=== PATIENT | male | born 1935 | race Caucasian/White ===

== ENCOUNTER 2018-08-29 23:39 | Emergency (ER) | payer MEDICARE, OTHER ==
--- NOTE | 2018-08-30 00:20 | EDM.PDOC ---
ED HPI GENERAL MEDICAL PROBLEM - General Chief Complaint: ENT Problem Stated Complaint: BLOODY NOSE CANT GET IT TO STOP Time Seen by Provider: 08/30/18 00:20 Source of Information: Reports: Patient History Limitations: Reports: No Limitations - History of Present Illness INITIAL COMMENTS - FREE TEXT/NARRATIVE: 83-year-old male presents to the ED with acute left-sided nosebleed. Bleeding started spontaneously about 3 hours ago. After half hour he was able to get it to stop but 20 minutes later started to bleed again. Blood almost for an hour before keep came to the ED. Nose clamp in place for about one hour and is now stopped bleeding. He states he coughed up a little bit of blood but it was for the most part it was pouring out the left side of his nose. Note the patient is on aspirin and Eliquis due to atrial fibrillation. No recent trauma to his nose. Onset: Today Onset Date: 08/29/18 Onset Time: 21:45 Duration: Hour(s): Location: Reports: Face Quality: Reports: Other Severity: Moderate (Aggressive bleeding left naris.) Improves with: Reports: Other (Firm pressure has helped control the bleeding and no scleral seems to cut it to stop.) Worsens with: Reports: None Context: Reports: Other. Denies: Activity, Exercise, Lifting, Sick Contact, Trauma Associated Symptoms: Reports: Malaise. Denies: Confusion (Mark is occurrence of nosebleed.), Chest Pain, Cough, cough w sputum, Diaphoresis, Fever /Chills, Headaches, Loss of Appetite, Nausea/Vomiting, Rash, Seizure, Shortness of Breath Treatments WORKPLACE REHABILITATION OFFICER: Reports: Other (see below) (None.) - Related Data Allergies Allergy/AdvReac Type Severity Reaction Status Date / Time No Known Allergies Allergy Verified 08/31/15 16:47 Home Meds: Home Meds Simvastatin [Zocor] 20 mg PO DAILY 08/18/15 [History] Tamsulosin [Flomax] 0.4 mg PO DAILY #14 cap.er 08/18/15 [Rx] Aspirin 81 mg PO DAILY 08/31/15 [History] Fish Oil/[place]-3 Fatty Acids [Fish Oil] 1,200 mg PO DAILY 08/31/15 [History] Bacitracin/Polymyxin B Sulfate [Polysporin Ointment] 14.2 gm TP BEDTIME #1 tube 08/30/18 [Rx] Past Medical History Cardiovascular History: Reports: Afib (He is on aspirin and Eliquis for this. States she's been in A. fib for 7 or 8 months. He is wondering about discussion with autism tutor in regards to possibility of attempting cardioversion. I've asked him to discuss this with Dr. Smith his primary care physician) Genitourinary History: Reports: BPH, Prostate Disorder (Is on tamsulosin as well.) Other Genitourinary History: Bladder cancer diagnosed about 6 months ago. He presented with obstruction of the urethra and active bleeding per urethra. Required fulguration and cauterization and then BCG treatments. Is followed by urology every 6 months. Musculoskeletal History: Reports: Back Pain, Chronic, Osteoarthritis (Knees hips and neck at times) Social & Family History - Living Situation & Occupation Living situation: Reports: (Second recently within the last month. She secondary to primary renal cancer with diffuse metastatic bone disease. I.e. she had stage IV disease at the time of diagnosis.), Alone Occupation: Retired ED ROS ENT - Review of Systems Review Of Systems: See Below Constitutional: Reports: Weakness. Denies: Fever, Chills, Malaise, Fatigue, Weight Loss HEENT: Reports: Glasses, Nosebleed (Profuse left-sided nosebleed tonight.) Cardiovascular: Reports: Blood Pressure Problem, Dyspnea on Exertion Endocrine: Reports: Fatigue (Elevated a bit tonight but not usually.) GI/Abdominal: Reports: No Symptoms : Reports: Frequency, Other Musculoskeletal: Reports: Back Pain (Nocturia usually 2.), Joint Pain Skin: Reports: Bruising (Knees and hips at times shoulders occasionally as well. ) Neurological: Reports: No Symptoms ( Bruises easily as he is on aliquots and aspirin.) Psychiatric: Reports: No Symptoms Hematologic/Lymphatic: Reports: No Symptoms Immunologic: Reports: No Symptoms ED EXAM, ENT - Physical Exam Exam: See Below Exam Limited By: No Limitations General Appearance: Alert, WD/WN, No Apparent Distress, Other (Nose clamp in place.) Nose: Other (Examination of his nose reveals inflammation of the right nasal mucosa particular the floor of the nose presumably due to dryness. The left side showed an area that has been bleeding from the anterior mid septum. Leading appears to stop with the aid of the clamp.) Mouth/Throat: Normal Inspection, Normal Gums, Normal Lips, Other Head: Atraumatic, Normocephalic (No blood or clots in the posterior oropharynx.) Neck: Normal Inspection, Limited Range of Motion, Tender Lateral. No: Lymphadenopathy (L), Lymphadenopathy (R) Respiratory/Chest: No Respiratory Distress, Lungs Clear, Normal Breath Sounds, Chest Non-Tender Cardiovascular: No JVD, No Murmur, Irregularly Irregular (Atrial fibrillation with rate controlled in the 70s.). No: Regular Rate, Rhythm, No Edema, No Gallop, Bradycardia, Tachycardia GI/Abdominal: Normal Bowel Sounds (Atrial fibrillation at 80/m), Soft, Non- Tender, No Organomegaly, No Abnormal Bruit, No Mass, Pelvis Stable Course - Vital Signs Last Recorded V/S: Last Vital Signs Temp 36.5 C 08/29/18 23:46 Pulse 78 08/29/18 23:46 Resp 18 08/29/18 23:46 BP Pulse Ox 94 L 08/29/18 23:46 - Radiology Interpretation Free Text/Narrative:: 83-year-old male is a CD with a profuse left-sided nosebleed for 2 and half hours. He did get it to stop for about a half an hour. He's had a nasal clamp in place for the last hour. Bleeding appears to stop. Inspection of the left nares reveals source of bleeding to be from the anterior mid nasal septum. Cauterized this area with silver nitrate but unfortunately the clot removed and he started bleeding again. I therefore reclamped his nose with the nose clamp and will review in 10-15 minutes. - Re-Assessments/Exams Free Text/Narrative Re-Assessment/Exam: 08/30/18 01:24 bleeding has stopped on reevaluation of the left naris. He'll be have bacitracin ointment placed in the nares. Plan will be to have him put Polysporin ointment by way of Q-tip into each side of his nose at bedtime for the next week. He's going to discuss with Dr. Carrillo whether or not cardiology consultation is worthwhile. Sitting more than not cardioversion is an option for him for it because of his chronic atrial fibrillation. Coarse she'll return to medical care if he has further bleeding. I did send him home with his nose clamp. Departure - Departure Time of Disposition: 01:25 Disposition: Home, Self-Care 01 Condition: Fair Clinical Impression: Anterior epistaxis - Discharge Information *PRESCRIPTION DRUG MONITORING PROGRAM REVIEWED*: Not Applicable *COPY OF PRESCRIPTION DRUG MONITORING REPORT IN PATIENT VERN: Not Applicable Prescriptions: Bacitracin/Polymyxin B Sulfate [Polysporin Ointment] 14.2 gm TP BEDTIME #1 tube Instructions: Nosebleed, [id number] Referrals: PCP,None [Ordering Only Provider] - Forms: ED Department Discharge Additional Instructions: Evaluation the emergency room tonight in regards to persistent bleeding from the left side of your nose which occurred spontaneously. This is being aggravated of course by being on aspirin and Eliquis for atrial fibrillation. Treatment in the ED was cauterization of the area with silver nitrate which initially seemed to make the bleeding a little bit worse. However with further clamping the bleeding has stopped completely. At home is Polysporin ointment to be applied with the aid of a Q-tip to the septum of the nose on each side once daily at bedtime for the next week. Placed a good quantity of Polysporin to the nose almost plugging it up. It will melt at body temperature and he could breathe through nose and about 10 minutes. Humidifier and sleeping quarters may help prevent further nosebleeds over the winter months. Return to medical care if you have any further nosebleeds. Try not to blow your nose or rub your nose at all for the next 48 hours.
== END 2018-08-30 01:40 | disposition home or self-care (01) ==
LOC: JD.ED 23:39
DX: R04.0 Epistaxis (principal); I48.91 Unspecified atrial fibrillation; Z79.01 Long term (current) use of anticoagulants; Z79.899 Other long term (current) drug therapy; Z79.82 Long term (current) use of aspirin
CPT/HCPCS: 30901; 99283-25

== ENCOUNTER 2020-10-17 11:15 | Emergency (ER) | payer MEDICARE, OTHER ==
[2020-10-17 11:25] VITALS: BP 126/76; PULSE 113
[2020-10-17] MEDS ORDERED: Sodium Chloride 0.9% 10 ML Syringe FLUSH PRN (11:36)
--- NOTE | 2020-10-17 12:43 | EDM.PDOC ---
ED HPI GENERAL MEDICAL PROBLEM - General Chief Complaint: General Stated Complaint: [facility] Time Seen by Provider: 10/17/20 11:29 Source of Information: Reports: Patient, EMS, Family History Limitations: Reports: No Limitations - History of Present Illness INITIAL COMMENTS - FREE TEXT/NARRATIVE: The patient presents by [facility] for shortness of breath, cough and generalized weakness. The patient was found on the floor by his daughter this morning. He was diagnosed on Thursday with pneumonia and put on levaquin. He was also tested for COVID 19 and we do not know the results. He did not hurt his head or his neck. He has no headache, neck pain, chest pain, abdominal pain, hip, leg or arm pain. He has a cough and shortness of breath. He has a history of A-fib, hypertension and hypercholesterolemia. He also has a history of recurrent pneumonia. Onset: Gradual Duration: Day(s): Severity: Moderate Improves with: Reports: None Worsens with: Reports: None Associated Symptoms: Reports: Cough, Fever/Chills, Shortness of Breath. Denies: Chest Pain, Headaches, Nausea/Vomiting Treatments CHISELER HEAD: Reports: Other (see below) Other Treatments CHISELER HEAD: iv per ambulance - Related Data Allergies Allergy/AdvReac Type Severity Reaction Status Date / Time No Known Allergies Allergy Verified 10/17/20 11:30 Past Medical History HEENT History: Reports: Impaired Vision Cardiovascular History: Reports: Afib, High Cholesterol, Hypertension Respiratory History: Reports: Pneumonia, Recurrent Genitourinary History: Reports: Renal Calculus Musculoskeletal History: Reports: Back Pain, Chronic, Other (See Below) Other Musculoskeletal History: low back surgery Oncologic (Cancer) History: Reports: Other (See Below) Other Oncologic History: 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 - Past Surgical History GI Surgical History: Reports: Colonoscopy Social & Family History - Tobacco Use Tobacco Use Status *Q: Never Tobacco User - Caffeine Use Caffeine Use: Reports: Coffee - Recreational Drug Use Recreational Drug Use: No ED ROS GENERAL - Review of Systems Review Of Systems: See Below Constitutional: Reports: No Symptoms HEENT: Reports: No Symptoms Respiratory: Reports: Shortness of Breath, Cough Cardiovascular: Reports: No Symptoms Endocrine: Reports: No Symptoms GI/Abdominal: Reports: No Symptoms : Reports: No Symptoms Musculoskeletal: Reports: No Symptoms ED EXAM, GENERAL - Physical Exam Exam: See Below Exam Limited By: No Limitations General Appearance: Alert, No Apparent Distress Ears: Normal External Exam Nose: Normal Inspection Head: Atraumatic, Normocephalic Neck: Normal Inspection Respiratory/Chest: Respiratory Distress (mild), Decreased Breath Sounds, Rhonchi Cardiovascular: No Edema, No Murmur, Tachycardia GI/Abdominal: Soft, Non-Tender, No Organomegaly, No Mass Back Exam: Normal Inspection Extremities: Normal Inspection Neurological: Alert, Oriented, No Motor/Sensory Deficits #1 Interpretation EKG Date: 10/17/20 Time: 11:25 Rhythm: A-Fib Rate (Beats/Min): 113 [place]: LAD-Left [place] Deviation P-Wave: Absent QRS: Normal ST-T: Normal QT: Normal EKG Interpretation Comments: Multiple PVCs, Q waves in the inferior and anterior leads Course - Vital Signs Last Recorded V/S: Last Vital Signs Temp 97.2 F 10/17/20 11:24 Pulse 113 H 10/17/20 11:24 Resp 36 H 10/17/20 11:24 BP 126/76 10/17/20 11:24 Pulse Ox 91 L 10/17/20 11:36 - Orders/Labs/Meds Orders: Active Orders 24 hr Category Date Time Status Cardiac Monitoring [RC] . DIRECTED Care 10/17/20 11:36 Active EKG Documentation Completion [RC] STAT Care 10/17/20 11:37 Active Oxygen Therapy [RC] PRN Care 10/17/20 11:36 Active Peripheral IV Care [RC] . DIRECTED Care 10/17/20 11:37 Active CULTURE BLOOD [BC] Stat Lab 10/17/20 12:30 Received CULTURE BLOOD [BC] Stat Lab 10/17/20 12:40 Received Sodium Chloride 0.9% [Saline Flush] Med 10/17/20 11:36 Active 10 ml FLUSH ASDIRECTED PRN BiPAP [RESPCARE] Routine Oth 10/17/20 11:38 Active Blood Culture x2 Reflex Set [OM.PC] Stat Oth 10/17/20 11:37 Ordered Peripheral IV Insertion Adult [OM.PC] Stat Oth 10/17/20 11:36 Ordered Medication Orders Sodium Chloride (Saline Flush) 10 ml FLUSH ASDIRECTED PRN PRN Reason: Keep Vein Open Last Admin: 10/17/20 12:04 Dose: 10 ml Documented by: ILDA Labs: Laboratory Tests 10/17/20 10/17/20 10/17/20 Range/Units 11:28 11:28 11:28 WBC 9.16 H (4.23-9.07) K/mm3 RBC 5.50 (4.63-6.08) M/mm3 Hgb 16.4 (13.7-17.5) gm/dl Hct 47.8 (40.1-51.0) % MCV 86.9 (79.0-92.2) fl MCH 29.8 (25.7-32.2) pg MCHC 34.3 (32.2-35.5) g/dl RDW Std Deviation 45.8 H (35.1-43.9) fL Plt Count 175 (163-337) K/mm3 MPV 11.7 (9.4-12.3) fl Neut % (Auto) 80.2 H (34.0-67.9) % Lymph % (Auto) 11.0 L (21.8-53.1) % Mccormick % (Auto) 8.2 (5.3-12.2) % Eos % (Auto) 0 L (0.8-7.0) Baso % (Auto) 0.1 (0.1-1.2) % Neut # (Auto) 7.34 H (1.78-5.38) K/mm3 Lymph # (Auto) 1.01 L (1.32-3.57) K/mm3 Mccormick # (Auto) 0.75 (0.30-0.82) K/mm3 Eos # (Auto) 0.00 L (0.04-0.54) K/mm3 Baso # (Auto) 0.01 (0.01-0.08) K/mm3 PT 12.4 H (9.7-12.0) SECONDS INR 1.16 APTT 36.3 H (21.7-31.4) SECONDS D-Dimer, Quantitative 0.87 H (0.19-0.50) mg/L Sodium 135 L (136-145) mEq/L Potassium 3.2 L (3.5-5.1) mEq/L Chloride 100 (98-107) mEq/L Carbon Dioxide 21 (21-32) mEq/L Anion Gap 17.2 H (5-15) BUN 35 H (7-18) mg/dL Creatinine 1.8 H (0.7-1.3) mg/dL Est Cr Clr Drug Dosing 29.03 mL/min Estimated GFR (MDRD) 36 (>60) mL/min BUN/Creatinine Ratio 19.4 H (14-18) Glucose 136 H (83-115) mg/dL Lactic Acid (0.4-2.0) mmol/L Calcium 8.8 (8.5-10.1) mg/dL Transferrin (202-364) mg/dL Total Bilirubin 1.6 H (0.2-1.0) mg/dL AST 137 H (15-37) U/L ALT 112 H (16-63) U/L Alkaline Phosphatase 83 (46-116) U/L Lactate Dehydrogenase 543 H (85-227) U/L Troponin I 0.159 H* (0.00-0.056) ng/mL C-Reactive Protein 18.7 H* (<1.0) mg/dL Total Protein 6.9 (6.4-8.2) g/dl Albumin 2.6 L (3.4-5.0) g/dl Globulin 4.3 gm/dL Albumin/Globulin Ratio 0.6 L (1-2) SARS-CoV-2 RNA (EVANGELIST) (NEGATIVE) 10/17/20 10/17/20 10/17/20 Range/Units 11:28 11:28 12:17 WBC (4.23-9.07) K/mm3 RBC (4.63-6.08) M/mm3 Hgb (13.7-17.5) gm/dl Hct (40.1-51.0) % MCV (79.0-92.2) fl MCH (25.7-32.2) pg MCHC (32.2-35.5) g/dl RDW Std Deviation (35.1-43.9) fL Plt Count (163-337) K/mm3 MPV (9.4-12.3) fl Neut % (Auto) (34.0-67.9) % Lymph % (Auto) (21.8-53.1) % Mccormick % (Auto) (5.3-12.2) % Eos % (Auto) (0.8-7.0) Baso % (Auto) (0.1-1.2) % Neut # (Auto) (1.78-5.38) K/mm3 Lymph # (Auto) (1.32-3.57) K/mm3 Mccormick # (Auto) (0.30-0.82) K/mm3 Eos # (Auto) (0.04-0.54) K/mm3 Baso # (Auto) (0.01-0.08) K/mm3 PT (9.7-12.0) SECONDS INR APTT (21.7-31.4) SECONDS D-Dimer, Quantitative (0.19-0.50) mg/L Sodium (136-145) mEq/L Potassium (3.5-5.1) mEq/L Chloride (98-107) mEq/L Carbon Dioxide (21-32) mEq/L Anion Gap (5-15) BUN (7-18) mg/dL Creatinine (0.7-1.3) mg/dL Est Cr Clr Drug Dosing mL/min Estimated GFR (MDRD) (>60) mL/min BUN/Creatinine Ratio (14-18) Glucose (83-115) mg/dL Lactic Acid 2.2 H* (0.4-2.0) mmol/L Calcium (8.5-10.1) mg/dL Transferrin 126 L (202-364) mg/dL Total Bilirubin (0.2-1.0) mg/dL AST (15-37) U/L ALT (16-63) U/L Alkaline Phosphatase (46-116) U/L Lactate Dehydrogenase (85-227) U/L Troponin I (0.00-0.056) ng/mL C-Reactive Protein (<1.0) mg/dL Total Protein (6.4-8.2) g/dl Albumin (3.4-5.0) g/dl Globulin gm/dL Albumin/Globulin Ratio (1-2) SARS-CoV-2 RNA (EVANGELIST) Positive H (NEGATIVE) Meds: Medications Generic Name Dose Route Start Last Admin Trade Name Freq PRN Reason Stop Dose Admin Sodium Chloride 10 ml 10/17/20 11:36 10/17/20 12:04 Saline Flush FLUSH 10 ml ASDIRECTED PRN Administration Keep Vein Open Discontinued Medications Generic Name Dose Route Start Last Admin Trade Name Freq PRN Reason Stop Dose Admin Dexamethasone 6 mg 10/17/20 13:12 10/17/20 13:37 Decadron IVPUSH 10/17/20 13:13 6 mg ONETIME ONE Administration - Re-Assessments/Exams Free Text/Narrative Re-Assessment/Exam: 10/17/20 13:05 I ordered oxygen, BiPAP, CXR, EKG, labs, blood cultures and COVID 19. His EKG shows atrial fibrillation with PVCs and nothing else acute. His CXR shows bilateral infiltrates. His WBC is elevated at 9.16. His PT is elevated at 12.4. His D-dimer is elevated at 0.87. His Na is low at 135. His K is low at 3.2. His anion gap is elevated at 17.2. His creatinine is elevated at 1.8. His lactic acid is elevated at 2.2. His transferring is elevated at 166. His AST is elevated at 137. His ALT is elevated at 162. His LDH is elevated at 543. His troponin is elevated at 0.159. 10/17/20 14:23 He has COVID 19 pneumonia and hypoxia. I feel he needs to be admitted. We have no beds here. I called [facility] in [place] and talked with Dr Paulson and he accepted the patient. Departure - Departure Time of Disposition: 14:30 Disposition: DC/Tfer to Acute Hospital 02 Condition: Serious Clinical Impression: COVID-19, Pneumonia due to COVID-19 virus, Renal insufficiency - Discharge Information Referrals: Charles Bolaños MD [Primary Care Provider] - Forms: ED Department Discharge Sepsis Event Note (ED) - Evaluation Sepsis Screening Result: No Definite Risk - Focused Exam Vital Signs: Vital Signs Temp Pulse Resp BP Pulse Ox Pulse Ox 10/17/20 11:36 91 L 10/17/20 11:24 97.2 F 113 H 36 H 126/76 80 L - My Orders Last 24 Hours: My Active Orders 10/17/20 11:36 Cardiac Monitoring [RC] . DIRECTED Oxygen Therapy [RC] PRN Sodium Chloride 0.9% [Saline Flush] 10 ml FLUSH ASDIRECTED PRN Peripheral IV Insertion Adult [OM.PC] Stat 10/17/20 11:37 EKG Documentation Completion [RC] STAT Peripheral IV Care [RC] . DIRECTED Blood Culture x2 Reflex Set [OM.PC] Stat 10/17/20 11:38 BiPAP [RESPCARE] Routine 10/17/20 12:30 CULTURE BLOOD [BC] Stat 10/17/20 12:40 CULTURE BLOOD [BC] Stat - Assessment/Plan Last 24 Hours: My Active Orders 10/17/20 11:36 Cardiac Monitoring [RC] . DIRECTED Oxygen Therapy [RC] PRN Sodium Chloride 0.9% [Saline Flush] 10 ml FLUSH ASDIRECTED PRN Peripheral IV Insertion Adult [OM.PC] Stat 10/17/20 11:37 EKG Documentation Completion [RC] STAT Peripheral IV Care [RC] . DIRECTED Blood Culture x2 Reflex Set [OM.PC] Stat 10/17/20 11:38 BiPAP [RESPCARE] Routine 10/17/20 12:30 CULTURE BLOOD [BC] Stat 10/17/20 12:40 CULTURE BLOOD [BC] Stat
--- NOTE | 2020-10-17 12:45 | CR ---
PROCEDURE INFORMATION: Exam: XR Chest, 1 View Exam date and time: 10/17/2020 11:33 AM Age: 85 years old Clinical indication: Chest pain TECHNIQUE: Imaging protocol: XR of the chest Views: 1 view. COMPARISON: No relevant prior studies available. FINDINGS: Lungs: Severe diffuse left lung airspace opacification sparing only a small portion of the left upper lobe. There is less prominent airspace opacification in right lower lobe and right middle lobe, the right apex also spared. Pleural space: Normal. Heart/Mediastinum: Normal heart and cardiomediastinal silhouette. Vasculature: Normal pulmonary vessel caliber. Normal aorta. Bones/joints: The bones are intact. IMPRESSION: Bilateral prominent lung infiltrates/pneumonia, left greater than right. Negative for pulmonary edema. Thank you for allowing us to participate in the care of your patient. Dictated and Authenticated by: Андрей Birch MD 10/17/2020 1:27 PM Central Time ([place] & [place]) MTDD
[2020-10-17] MEDS ORDERED: Dexamethasone 4 MG/ML SDV IVPUSH ONE (13:12)
== END 2020-10-17 17:31 ==
LOC: MERGE 11:15 → SUPCPDRO 11:15 → JD.ED 11:15
DX: U07.1 COVID-19 (principal); J12.89 Other viral pneumonia; N28.9 Disorder of kidney and ureter, unspecified; I48.91 Unspecified atrial fibrillation; I10 Essential (primary) hypertension; E87.6 Hypokalemia; E87.1 Hypo-osmolality and hyponatremia
CPT/HCPCS: 36415; 71045; 80053; 83605; 83615; 84466; 84484; 85025; 85379; 85610; 85730; 86140; 87040; 93005; 94660; 96374; 99285; J1100; U0002; 93010; 99284